=== PATIENT | male | born 1990 | race Caucasian/White ===

== ENCOUNTER 2017-04-18 10:46 | Emergency (ER) | payer OTHER ==
[~2017-04-18] VITALS: Ht 182.9 cm; Wt 121.0 kg
[2017-04-18] MEDS ORDERED: GASTROGRAFIN SOLUTION 30ML (Q9963) PO ONE ×2 (12:25→12:55)
[2017-04-18 13:02] LABS: ALBUMIN 3.8 GM/DL (3.2-5.2); ALKALINE PHOSPHATASE 93 U/L (45-117); ALT/SGPT 66 U/L (12-78); ANION GAP 6 MEQ/L (8-16); AST/SGOT 26 U/L (15-37); BILIRUBIN,TOTAL 0.3 MG/DL (0.2-1.0); BLOOD UREA NITROGEN 10 MG/DL (7-18); CARBON DIOXIDE LEVEL 26 MEQ/L (21-32); CHLORIDE LEVEL 106 MEQ/L (98-107); CREATININE FOR GFR 0.93 MG/DL (0.70-1.30); GLOMERULAR FILTRATION RATE > 60.0 (>60); GLUCOSE, FASTING 98 MG/DL (70-105); POTASSIUM SERUM 3.8 MEQ/L (3.5-5.1); SODIUM LEVEL 138 MEQ/L (136-145); TOTAL PROTEIN 7.6 GM/DL (6.4-8.2)
[2017-04-18 13:13] LABS: BASO # 0.1 K/mm3 (0.0-0.2); BASO % 1.2 % (0.0-1.0); EOS # 0.4 K/mm3 (0.0-0.50); EOS % 6.3 % (0.0-3.0); LARGE UNSTAINED CELL # 0.1 K/mm3 (0.0-0.4); LARGE UNSTAINED CELL % 1.7 % (0.0-4.0); LYMPH # 1.9 K/mm3 (1.5-6.5); LYMPH % 28.4 % (24.0-44.0); MEAN CORPUSCULAR HEMOGLOBIN 27.8 pg (27.0-33.0); MEAN CORPUSCULAR VOLUME 81.6 fl (80.0-96.0); MONO # 0.5 K/mm3 (0.0-0.8); MONO % 6.7 % (0.0-5.0); NEUTROPHILS # 3.8 K/mm3 (1.8-7.7); NEUTROPHILS % 55.6 % (36.0-66.0); PLATELET COUNT, AUTOMATED 252 k/mm3 (150-450); RED CELL DISTRIBUTION WIDTH 13.6 % (11.5-14.5); WHITE BLOOD COUNT 6.8 K/mm3 (4.0-10.0)
[2017-04-18] MEDS ORDERED: ACETAMINOPHEN TAB 650MG DOSE (2X325MG) PO ONE (13:30)
[2017-04-18] MEDS ORDERED: IBUPROFEN 800 MG TAB PO ONE (13:30)
[2017-04-18] MEDS ORDERED: ISOVUE-370 76% 100ML VIAL (Q9967) As Ordered ONE (13:45)
--- NOTE | 2017-04-18 14:15 | REP ---
Clinical: Abdominal pain with diarrhea and hematochezia. Technique: Axial contrast enhanced images from the lung bases to the pubic symphysis using oral and 100 ml Isovue 370 intravenous contrast material with coronal and sagittal re-formations. Findings: Lung bases are clear. Visualized heart and pericardium normal. Liver, spleen, pancreas, gallbladder, bilateral adrenal glands and kidneys are normal. The enteric system including stomach, small, and large bowel is without obstruction or acute inflammatory process. Normal terminal ileum identified in the right lower quadrant. Pelvis demonstrates normal bladder and age appropriate prostate/seminal vesicles. No free fluid. No significant adenopathy. No free air. Vasculature normal. Musculoskeletal structures are intact. Impression: Normal contrast enhanced CT of the abdomen and pelvis. No acute abdominopelvic pathology appreciated. Signed by Garrick Lal MD 04/18/2017 02:06 P
[2017-04-18 15:05] VITALS: BP 133/74
== END 2017-04-18 15:07 | disposition home or self-care (01) ==
LOC: M ED 10:46
DX: K92.1 Melena (principal); R10.9 Unspecified abdominal pain; R19.7 Diarrhea, unspecified

== ENCOUNTER 2018-04-04 16:23 | Emergency (ER) | payer OTHER ==
[2018-04-04 17:13] LABS: KETONE, URINE AUTO RFX TRACE mg/dL (NEGATIVE); LEUKOCYTE ESTERASE UR AUTO RFX NEGATIVE (NEGATIVE); NITRITE, URINE AUTO RFX NEGATIVE (NEGATIVE); RBC, URINE AUTO RFX 0 /HPF (0-3); SQUAM EPITHELIAL CELL UR AURFX 0 /HPF (0-6); WBC, URINE AUTO RFX 0 /HPF (0-3)
[2018-04-04 18:13] LABS: BEDSIDE GLUCOSE 370 MG/DL (70-105)
[2018-04-04 18:40] LABS: CHLAMYDIA DNA AMPLIFICATION NEGATIVE (NEGATIVE); GC DNA AMPLIFICATION NEGATIVE (NEGATIVE)
[2018-04-04] MEDS: NS 1,000 ML IV (18:43)
[2018-04-04] MEDS: HumuLIN R (REGULAR) INSULIN (NovoLIN R) **100U/ML** PER UNIT IV (18:46)
[2018-04-04 19:25] LABS: BEDSIDE GLUCOSE 307 MG/DL (70-105)
[2018-04-04 19:35] LABS: BASO % 0.5 % (0.0-1.0); EOS # 0.2 10^3/uL (0.0-0.50); EOS % 1.9 % (0.0-3.0); HEMATOCRIT 37.2 % (42.0-52.0); HEMOGLOBIN 12.9 g/dl (13.5-17.5); IMMATURE GRANULOCYTE % 0.3 % (0-3.0); LYMPH # 1.7 10^3/uL (1.5-6.5); LYMPH % 21.1 % (24.0-44.0); MEAN CORPUSCULAR HEMOGLOBIN 26.9 pg (27.0-33.0); MEAN CORPUSCULAR HGB CONC 34.7 g/dl (32.0-36.5); MEAN CORPUSCULAR VOLUME 77.7 fl (80.0-96.0); MONO # 0.5 10^3/uL (0.0-0.8); MONO % 6.7 % (0.0-5.0); NEUTROPHILS # 5.5 10^3/uL (1.8-7.7); NEUTROPHILS % 69.5 % (36.0-66.0); PLATELET COUNT, AUTOMATED 182 10^3/uL (150-450); RED BLOOD COUNT 4.79 10^6/uL (4.30-6.10); RED CELL DISTRIBUTION WIDTH 14.1 % (11.5-14.5); VENOUS BASE EXCESS -4.8 (-2.0-2.0); VENOUS HCO3 20.1 MEQ/L (23.0-27.0); VENOUS O2 SATURATION 83.1 % (60.0-80.0); VENOUS PARTIAL PRESSURE CO2 36.5 mmHg (38.0-50.0); VENOUS PARTIAL PRESSURE O2 47.3 mmHg (30.0-50.0); VENOUS PH 7.359 UNITS (7.330-7.430); VENOUS STANDARD HCO3 20.3 MEQ/L; VENOUS TOTAL CO2 21.2 MEQ/L (24.0-28.0); WHITE BLOOD COUNT 7.9 10^3/uL (4.0-10.0)
[2018-04-04 19:51] LABS: ESTIMATED AVERAGE GLUCOSE 295 MG/DL (60-110); HEMOGLOBIN A1c 11.9 %
[2018-04-04 19:57] LABS: ANION GAP 10 MEQ/L (8-16); BLOOD UREA NITROGEN 7 MG/DL (7-18); CARBON DIOXIDE LEVEL 27 MEQ/L (21-32); CHLORIDE LEVEL 103 MEQ/L (98-107); CREATININE FOR GFR 0.87 MG/DL (0.70-1.30); GLOMERULAR FILTRATION RATE > 60.0 (>60); GLUCOSE, FASTING 315 MG/DL (70-100); POTASSIUM SERUM 3.5 MEQ/L (3.5-5.1); SODIUM LEVEL 140 MEQ/L (136-145)
[2018-04-04 20:06] LABS: BEDSIDE GLUCOSE 302 MG/DL (70-105)
[2018-04-04] MEDS: FLUCONAZOLE 50MG TABLET PO (20:45)
[2018-04-04] MEDS: metFORMIN (GLUCOPHAGE) 500 MG TAB PO (20:45)
== END 2018-04-04 21:19 | disposition home or self-care (01) ==
LOC: M ED 16:23
DX: B37.42 Candidal balanitis (principal); N47.1 Phimosis; E11.9 Type 2 diabetes mellitus without complications; Z88.5 Allergy status to narcotic agent
CPT/HCPCS: 82803

== ENCOUNTER → 2018-04-06 | Outpatient (CLI) | payer OTHER | LOC: M SLEEP HO 10:45 | DX: R06.83 Snoring (principal) | CPT/HCPCS: G0399 ==

== ENCOUNTER → 2018-04-08 | Outpatient (CLI) | payer OTHER ==
[2018-04-08 08:20] LABS: APPEARANCE, URINE CLEAR (CLEAR); BACTERIA, URINE AUTO NEGATIVE (NEGATIVE); BILIRUBIN, URINE AUTO NEGATIVE (NEGATIVE); BLOOD, URINE BLOOD NEGATIVE (NEGATIVE); COLOR, URINE YELLOW (YELLOW); GLUCOSE, URINE (UA) AUTO 2+ mg/dL (NEGATIVE); KETONE, URINE AUTO NEGATIVE (NEGATIVE); LEUKOCYTE ESTERASE, URINE AUTO NEGATIVE (NEGATIVE); NITRITE, URINE AUTO NEGATIVE (NEGATIVE); PROTEIN, URINE AUTO NEGATIVE (NEGATIVE); RBC, URINE AUTO 1 /HPF (0-3); SPECIFIC GRAVITY URINE AUTO 1.028 (1.002-1.035); SQUAMOUS EPITHELIAL CELL UR AU 1 /HPF (0-6); UROBILINOGEN, URINE AUTO 0.2 mg/dL (0.0-2.0); WBC, URINE AUTO 2 /HPF (0-3)
[2018-04-08 08:58] LABS: ALBUMIN 3.8 GM/DL (3.2-5.2); ALBUMIN/GLOBULIN RATIO 0.93 (1.00-1.93); ALKALINE PHOSPHATASE 111 U/L (45-117); ALT/SGPT 117 U/L (12-78); ANION GAP 10 MEQ/L (8-16); AST/SGOT 73 U/L (7-37); BILIRUBIN,TOTAL 0.4 MG/DL (0.2-1.0); BLOOD UREA NITROGEN 12 MG/DL (7-18); CALCIUM LEVEL 8.8 MG/DL (8.5-10.1); CARBON DIOXIDE LEVEL 26 MEQ/L (21-32); CHLORIDE LEVEL 104 MEQ/L (98-107); CHOLESTEROL LEVEL 179 MG/DL (<200); CHOLESTEROL RISK RATIO 7.782 (<5); CREATININE FOR GFR 0.88 MG/DL (0.70-1.30); GLOMERULAR FILTRATION RATE > 60.0 (>60); GLUCOSE, FASTING 189 MG/DL (70-100); HDL CHOLESTEROL 23 MG/DL (>40); MALB URINE SIEMENS 33.9 MG/L; MAU/CREAT RATIO 12.3 MCG/MG (0.0-30.0); NON-HDL-C 156 MG/DL; SODIUM LEVEL 140 MEQ/L (136-145); TOTAL PROTEIN 7.9 GM/DL (6.4-8.2); TRIGLYCERIDES LEVEL 540 MG/DL (<150)
[2018-04-10 14:28] LABS: C-PEPTIDE 6.6 ng/mL (1.1-4.4)
[2018-04-10 14:28] LABS: INSULIN LEVEL 43.9 uIU/mL (2.6-24.9)
[2018-04-13 00:07] LABS: GAD-65 AUTOANTIBODY <5.0 U/mL (0.0-5.0)
[2018-04-13 00:07] LABS: ISLET CELL ANTIBODIES Negative (Neg:<1:1)
== END ==
LOC: M LAB 07:26
DX: E11.9 Type 2 diabetes mellitus without complications (principal)
CPT/HCPCS: 83525

== ENCOUNTER → 2018-04-12 | Outpatient (CLI) | payer OTHER ==
[2018-04-12 11:32] LABS: LDH LACTATE DEHYDROGENASE 205 U/L (87-241)
[2018-04-12 11:53] LABS: HEPATITIS B SURFACE ANTIGEN NEGATIVE (NEGATIVE)
[2018-04-12 12:21] LABS: HEPATITIS C VIRUS ABY INDEX 0.2 INDEX (<0.8)
[2018-04-12 12:22] LABS: HEPATITIS B CORE ANTIBODY IGM NEGATIVE (NEGATIVE)
[2018-04-12 12:23] LABS: HEPATITIS A ANTIBODY IGM NEGATIVE (NEGATIVE)
[2018-04-12 18:34] LABS: AMORPHOUS SEDIMENT MODERATE (NEGATIVE); APPEARANCE, URINE TURBID (CLEAR); BACTERIA, URINE AUTO NEGATIVE (NEGATIVE); BILIRUBIN, URINE AUTO NEGATIVE (NEGATIVE); BLOOD, URINE BLOOD NEGATIVE (NEGATIVE); COLOR, URINE YELLOW (YELLOW); GLUCOSE, URINE (UA) AUTO NEGATIVE (NEGATIVE); KETONE, URINE AUTO NEGATIVE (NEGATIVE); LEUKOCYTE ESTERASE, URINE AUTO TRACE (NEGATIVE); MUCUS, URINE SMALL (NEGATIVE); NITRITE, URINE AUTO NEGATIVE (NEGATIVE); PROTEIN, URINE AUTO NEGATIVE (NEGATIVE); RBC, URINE AUTO 9 /HPF (0-3); SQUAMOUS EPITHELIAL CELL UR AU 0 /HPF (0-6); UROBILINOGEN, URINE AUTO 0.2 mg/dL (0.0-2.0); WBC, URINE AUTO 0 /HPF (0-3)
== END ==
LOC: M LAB 10:40
DX: R74.8 Abnormal levels of other serum enzymes (principal); N48.1 Balanitis
CPT/HCPCS: 83615

== ENCOUNTER → 2018-04-26 | Outpatient (CLI) | payer OTHER | LOC: M RAD 06:50 | DX: R74.8 Abnormal levels of other serum enzymes (principal); K76.0 Fatty (change of) liver, not elsewhere classified | CPT/HCPCS: 76705 ==

== ENCOUNTER 2020-03-25 15:25 | Emergency (ER) | payer OTHER ==
[~2020-03-25] VITALS: Ht 182.9 cm; Wt 128.7 kg
[~2020-03-25 15:25] MED LIST: DIFL150T PO; LOTRCRE TOP; METF500T13 PO
--- NOTE | 2020-03-25 16:14 | ECGEPIP ---
[facility] - ED Test Date: 2020-03-25 Pat Name: DI WEEMS Department: Room: - Gender: Male [employer]: : 1990 Requested By: ANNABEL Quarles Order Number: [id number] Reading MD: Elva Stack Measurements Intervals [place] Rate: 110 P: 30 NC: 144 QRS: 46 QRSD: 91 T: 39 QT: 313 QTc: 425 Interpretive Statements SINUS TACHYCARDIA ABNORMAL RHYTHM ECG INCREASED RATE 10/09/14 Electronically Signed on 03-25-2020 16:14:00 EDT by Elva Stack
[2020-03-25] MEDS ORDERED: GI COCKTAIL 50ML BTL(HYOSCYAMINE/MAALOX/LIDOCAINE VISCOUS)(1:3:1) PO ONE (16:15)
[2020-03-25 16:34] LABS: BASO # 0.1 10^3/uL (0.0-0.2); BASO % 0.9 % (0.0-1.0); EOS # 0.1 10^3/uL (0.0-0.5); EOS % 1.9 % (0.0-3.0); HEMATOCRIT 42.7 % (42.0-52.0); HEMOGLOBIN 14.2 g/dl (13.5-17.5); LYMPH # 1.8 10^3/uL (1.5-5.0); MEAN CORPUSCULAR HEMOGLOBIN 26.8 pg (27.0-33.0); MEAN CORPUSCULAR HGB CONC 33.3 g/dl (32.0-36.5); MEAN CORPUSCULAR VOLUME 80.7 fl (80.0-96.0); MONO # 0.4 10^3/uL (0.0-0.8); NEUTROPHILS % 54.8 % (36.0-66.0); PLATELET COUNT, AUTOMATED 226 10^3/uL (150-450); RED BLOOD COUNT 5.29 10^6/uL (4.30-6.10); WHITE BLOOD COUNT 5.4 10^3/uL (4.0-10.0)
[2020-03-25 16:44] LABS: INR 1.04; PROTHROMBIN TIME 13.3 SECONDS (11.8-14.0)
--- NOTE | 2020-03-25 17:04 | REP ---
Two-view chest: 03/25/2020. Indication: Chest pain. Comparison: 05/08/2011. Findings: The lungs are clear. There is no pleural effusion or pneumothorax. The cardiac silhouette is not enlarged. Impression: Clear lungs. Electronically Signed by Cain Borges DO 03/25/2020 04:56 P
[2020-03-25 17:12] LABS: ALBUMIN 3.8 GM/DL (3.2-5.2); ALT/SGPT 92 U/L (12-78); BILIRUBIN,DIRECT < 0.1 MG/DL (0.0-0.2); BILIRUBIN,TOTAL 0.3 MG/DL (0.2-1.0); CK-MB VALUE MASS < 1.0 NG/ML (<3.6); CPK CREATINE PHOSPHOKINASE 95 U/L (39-308); FREE T4 1.21 NG/DL (0.76-1.46); LIPASE 96 U/L (73-393); MB/CK RELATIVE INDEX 1.05 (< OR =4); NT-PRO BNP 13 PG/ML (<125); TOTAL PROTEIN 7.8 GM/DL (6.4-8.2); TROPONIN I < 0.02 NG/ML (< 0.10)
[2020-03-25 17:20] LABS: HEMOGLOBIN A1c 9.3 %
[2020-03-25 18:02] LABS: D-DIMER QUANT < 270 ng/ml (<500)
[2020-03-25 18:50] LABS: APPEARANCE, URINE CLEAR (CLEAR); BACTERIA, URINE AUTO NEGATIVE (NEGATIVE); BILIRUBIN, URINE AUTO NEGATIVE (NEGATIVE); BLOOD, URINE BLOOD NEGATIVE (NEGATIVE); COLOR, URINE YELLOW (YELLOW); GLUCOSE, URINE (UA) AUTO 3+ mg/dL (NEGATIVE); KETONE, URINE AUTO NEGATIVE (NEGATIVE); LEUKOCYTE ESTERASE, URINE AUTO NEGATIVE (NEGATIVE); MUCUS, URINE SMALL (NEGATIVE); NITRITE, URINE AUTO NEGATIVE (NEGATIVE); PROTEIN, URINE AUTO 1+ mg/dL (NEGATIVE); RBC, URINE AUTO 0 /HPF (0-3); SPECIFIC GRAVITY URINE AUTO 1.033 (1.002-1.035); SQUAMOUS EPITHELIAL CELL UR AU 1 /HPF (0-6); UROBILINOGEN, URINE AUTO 0.2 mg/dL (0.0-2.0); WBC, URINE AUTO 5 /HPF (0-3)
[2020-03-25] MEDS ORDERED: OMEP-218 PO (18:56)
[2020-03-25 19:06] VITALS: BP 132/87
== END 2020-03-25 19:07 | disposition home or self-care (01) ==
LOC: M ED 15:25
DX: E11.65 Type 2 diabetes mellitus with hyperglycemia (principal); K21.9 Gastro-esophageal reflux disease without esophagitis; R00.0 Tachycardia, unspecified; Z88.8 Allergy status to other drugs, medicaments and biological substances

== ENCOUNTER → 2021-04-09 | Outpatient (CLI) | payer OTHER ==
[~2021-04-09] MED LIST changes: +OMEP-218 PO
[2021-04-09 13:38] LABS: HEMOGLOBIN A1c 9.9 %
[2021-04-09 13:49] LABS: ALBUMIN 3.7 GM/DL (3.2-5.2); ALT/SGPT 67 U/L (12-78); BILIRUBIN,TOTAL 0.3 MG/DL (0.2-1.0); BLOOD UREA NITROGEN 7 MG/DL (7-18); CALCIUM LEVEL 8.7 MG/DL (8.5-10.1); CARBON DIOXIDE LEVEL 26 MEQ/L (21-32); CHLORIDE LEVEL 103 MEQ/L (98-107); CHOLESTEROL LEVEL 224 MG/DL (<200); CREATININE, URINE 79.1 MG/DL; GLOMERULAR FILTRATION RATE > 60.0 (>60); GLUCOSE, FASTING 317 MG/DL (70-100); HDL CHOLESTEROL 25 MG/DL (>40); MALB URINE SIEMENS 7.4 MG/L; MAU/CREAT RATIO 9.3 MCG/MG (0.0-30.0); NON-HDL-C 199 MG/DL; POTASSIUM SERUM 3.8 MEQ/L (3.5-5.1); SODIUM LEVEL 135 MEQ/L (136-145); TOTAL PROTEIN 7.3 GM/DL (6.4-8.2); TRIGLYCERIDES LEVEL 711 MG/DL (<150)
== END ==
LOC: M LAB 12:19
PROVIDERS: ATTEND Nurse Practitioner Family
DX: E78.49 Other hyperlipidemia (principal)

== ENCOUNTER → 2021-08-17 | Outpatient (CLI) | payer OTHER ==
[2021-08-17 11:49] LABS: ALBUMIN 3.7 GM/DL (3.2-5.2); ALT/SGPT 61 U/L (12-78); BILIRUBIN,TOTAL 0.4 MG/DL (0.2-1.0); BLOOD UREA NITROGEN 8 MG/DL (7-18); CALCIUM LEVEL 9.4 MG/DL (8.5-10.1); CARBON DIOXIDE LEVEL 27 MEQ/L (21-32); CHLORIDE LEVEL 102 MEQ/L (98-107); CHOLESTEROL LEVEL 116 MG/DL (<200); CHOLESTEROL RISK RATIO 3.741 (<5); CREATININE FOR GFR 1.01 MG/DL (0.70-1.30); FREE T4 0.98 NG/DL (0.76-1.46); GLOMERULAR FILTRATION RATE > 60.0 (>60); GLUCOSE, FASTING 245 MG/DL (70-100); HDL CHOLESTEROL 31 MG/DL (>40); LDL CHOLESTEROL 27 MG/DL (<100); NON-HDL-C 85 MG/DL; POTASSIUM SERUM 4.2 MEQ/L (3.5-5.1); SODIUM LEVEL 137 MEQ/L (136-145); TOTAL PROTEIN 7.5 GM/DL (6.4-8.2); TRIGLYCERIDES LEVEL 292 MG/DL (<150)
[2021-08-17 11:53] LABS: HEMOGLOBIN A1c 9.1 %
== END ==
LOC: M LAB 10:41
PROVIDERS: ATTEND Nurse Practitioner Family
DX: E78.5 Hyperlipidemia, unspecified (principal); I10 Essential (primary) hypertension; E11.9 Type 2 diabetes mellitus without complications

== ENCOUNTER 2021-10-01 13:08 | Emergency (ER) | payer OTHER ==
[~2021-10-01] VITALS: Ht 177.8 cm; Wt 100.0 kg
[2021-10-01] MEDS ORDERED: MORPHINE 4 MG/ML 1ML VIAL/SYRINGE (J2270) IV ONE ×2 (14:30→16:00)
[2021-10-01] MEDS ORDERED: ONDANSETRON 4MG/2ML VIAL IV ONE (14:30)
--- NOTE | 2021-10-01 15:31 | REP ---
INDICATION: fall, pt tender. COMPARISON: None TECHNIQUE: Two views FINDINGS: The hip joint space is symmetric and well maintained. There is no fracture, dislocation, or subluxation. IMPRESSION: No acute abnormalities identified. <Electronically signed by Shayne Gaston > 10/01/21 [id number]
--- NOTE | 2021-10-01 15:34 | REP ---
INDICATION: poss patellar sublux, pain, instability after fall COMPARISON: 01/07/2014 TECHNIQUE: Four views absent the sunrise view. The patient was unable to assume the position necessary for a sunrise view. FINDINGS: There is a faintly visible but abnormal appearing ossific density in the posterior knee joint region. This represents a change from the prior exam. Additionally, there is an abnormal linear density in the anterior knee joint region and again seen only on the lateral view. The patella cannot be completely assessed without a sunrise view. IMPRESSION: 1. There are new abnormal os effect densities as described above. Fractures of unknown origin cannot be ruled out. The represent a change from the prior exam. 2. Insufficient evaluation of the patella in a patient with trauma. CT is recommended. <Electronically signed by Shayne Gaston > 10/01/21 [id number]
[2021-10-01] MEDS ORDERED: KETOROLAC 30 MG/ML 1ML VIAL IV ONE (16:00)
--- NOTE | 2021-10-01 16:27 | REP ---
INDICATION: slip and fall, knee unstable, swelling, tender. COMPARISON: Prior plain film examinations 01/07/2014 and earlier today reviewed TECHNIQUE: 2 x [address] scanning through the left knee was obtained and reconstructed in sagittal and coronal planes. FINDINGS: There is a comminuted fracture of the lateral cortical surface of the lateral femoral condyle with a concomitant comminuted fracture of the medial cortical surface of the medial patellar facet. Multiple tiny ossific densities are seen in the median aspect of the knee joint. 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 This was faintly visible on the prior plain film examination of 01/07/2014 and has increased in size when that plain film exam is compared to the most recent plain film exam. There is a large knee joint effusion probably hemarthrosis. IMPRESSION: 1. Lateral femoral condylar and medial patellar fractures, as described above, and most consistent with recent lateral patellar dislocation with reduction. 2. Additional ossific densities within the knee joint as described above highly suspicious for avulsion fractures due to aggressive ACL disruption. This needs further evaluation with MRI. 3. There is a large knee joint effusion likely hemarthrosis. 4. Other findings as described above. <Electronically signed by Shayne Gaston > 10/01/21 [id number]
[2021-10-01 17:48] LABS: RSV AMPLIFICATION NEGATIVE (NEGATIVE)
[2021-10-01] MEDS ORDERED: NS 1,000 ML IV ONE (18:30)
--- NOTE | 2021-10-01 18:40 | REPVR ---
PROCEDURE INFORMATION: Exam: MR Left Lower Extremity Joint Without Contrast, Knee Exam date and time: 10/01/2021 6:01 PM Age: 31 years old Clinical indication: Pain; Prior surgery; Surgery date: 6+ months; Surgery type: Left knee arthroscopic; Additional info: L knee patellar dislocation and fractures TECHNIQUE: Imaging protocol: MR of the Left lower extremity joint without contrast. Exam focused on the knee. COMPARISON: CT-Knee WITHOUT CONTRAST 10/01/2021 3:59 PM FINDINGS: The anterior and posterior cruciate ligaments are intact. There is a full-thickness tear of the medial patellofemoral retinaculum, extending to the femoral attachment of the medial collateral ligament, which is partially torn. The lateral collateral complex is normal in appearance. The medial and lateral menisci are normal in morphology and signal intensity. No meniscal tear is identified. The extensor mechanism is intact. There are comminuted, displaced fractures along the medial patellar facet and anterolateral aspect of the lateral femoral condyle. There is no dislocation. There is mild lateral patellar subluxation. Alignment is otherwise anatomic. There is fragmentation of the articular cartilage at the fracture sites. The remainder of the articular cartilage is intact. There is a large lipohemarthrosis. There is a 1.4 x 0.9 cm loose body in the posterior joint space. There is moderate periarticular soft tissue swelling and blood products. IMPRESSION: 1. Sequelae of recent transient lateral patellar dislocation with associated fractures, as described above. 2. Additional findings, as above. Electronically signed by: lEian Garay On 10/01/2021 18:40:08 PM
[2021-10-01 18:44] LABS: BASO % 0.5 % (0.0-1.0); EOS # 0.1 10^3/uL (0.0-0.5); EOS % 1.6 % (0.0-3.0); HEMATOCRIT 22.5 % (42.0-52.0); HEMOGLOBIN 7.1 g/dl (13.5-17.5); LYMPH % 21.5 % (24.0-44.0); MEAN CORPUSCULAR HEMOGLOBIN 26.9 pg (27.0-33.0); MEAN CORPUSCULAR HGB CONC 31.6 g/dl (32.0-36.5); MEAN CORPUSCULAR VOLUME 85.2 fl (80.0-96.0); MONO # 0.3 10^3/uL (0.0-0.8); NEUTROPHILS # 3.1 10^3/uL (1.5-8.5); NEUTROPHILS % 69.2 % (36.0-66.0); PLATELET COUNT, AUTOMATED 127 10^3/uL (150-450); RED BLOOD COUNT 2.64 10^6/uL (4.30-6.10); WHITE BLOOD COUNT 4.4 10^3/uL (4.0-10.0)
[2021-10-01 19:10] LABS: BLOOD UREA NITROGEN 8 MG/DL (7-18); CALCIUM LEVEL 8.1 MG/DL (8.5-10.1); CARBON DIOXIDE LEVEL 26 MEQ/L (21-32); CHLORIDE LEVEL 107 MEQ/L (98-107); GLOMERULAR FILTRATION RATE > 60.0 (>60); GLUCOSE, FASTING 95 MG/DL (70-100); POTASSIUM SERUM 3.6 MEQ/L (3.5-5.1); SODIUM LEVEL 140 MEQ/L (136-145)
[2021-10-01] MEDS ORDERED: HYDR-3713 PO (19:12)
[2021-10-01 19:14] VITALS: BP 145/78
[2021-10-01] MEDS ORDERED: physical therapy (19:25)
--- NOTE | 2021-10-02 09:31 | ER ---
ER CONSULTATION DATE: 10/01/2021 TIME: 5:00 p.m. CONSULTING SERVICE: Orthopedic Surgery. CONSULING PHYSICIAN: Tobin Glass MD HISTORY OF PRESENT ILLNESS: This is a 31-year-old male who sustained a twisting injury to his left knee while falling on ice today after a shift at [employer]. The patient sustained a left knee MCL strain as well as disruption of his MPFL. The patient presented with a painful left knee and hemarthrosis. On presentation he had CT and MRI performed on his left knee by the ER provider. Orthopedic Surgery was consulted for further evaluation and treatment. PAST MEDICAL HISTORY: 1. Diabetes. 2. Hypertension. 3. Hyperlipidemia. PAST SURGICAL HISTORY: 1. Left knee arthroscopy. 2. Lateral retinacular release. FAMILY HISTORY: SOCIAL HISTORY: He is a nondrinker, nonsmoker, no IV drug use. He works at [employer]. ALLERGIES: TRAMADOL. MEDICATIONS: 1. Metformin. 2. Aspirin. 3. Additional medications the patient could not recall. PHYSICAL EXAMINATION: Alert and oriented to person, time, and place. The patient had a very guarded knee exam. However, he did have significant hemarthrosis and edema is appreciated by the intracapsular swelling and edema and palpation of the suprapatellar region. He had tenderness to palpation about the femoral insertion of the MCL and the patellar insertion of the MPFL. The patient had a negative anterior drawer, negative posterior drawer examination, negative [place] examination. He was significantly guarding to a pivot shift exam and was guarding to varus and valgus stress at 0-30 degrees. The patient had significant translation laterally of two quadrants and guarded significantly with translation of the patella medially. The patient is otherwise neurovascularly intact to the left lower extremity. He had no breaks in the skin. He had 5/5 motor strength to the EHL, FHL, tibialis anterior, gastrocnemius and peroneal musculature. Sensation is intact to light touch to the deep and superficial peroneal, sural saphenous and tibial nerve root distributions. He had palpable pulses to the dorsalis pedis and posterior tibial arterial pulse. Brisk capillary refill in the digits. IMAGING DATA: Radiographs demonstrate what appears to be an avulsion fracture to the medial aspect of his patella, some previous calcification of the tibial spines likely secondary to previous arthroscopy and a loose body in the posterior aspect of his knee which appeared sclerotic and likely previously established. The patient's left knee CT scan was significant for the aforementioned findings and what appear to be some previous heterotopic ossification of the lateral aspect of the patient's distal femur. The patient's MRI demonstrated significant hemarthrosis on the patient's knee, disrupted MPFL and signal along the femoral insertion of the MCL indicative of grade 1 or 2 strain. No meniscal tears are appreciated on the lateral medial meniscus. Anterior cruciate, or posterior cruciate ligaments were intact. There was some bony bruising on the lateral femoral condyle. His patellar tendon and quadriceps tendons were intact. IMPRESSION: A 31-year-old male with a likely grade 1 or 2 MCL strain and MPFL disruption. PLAN: At this point in time, the patient had significant guarding to the left knee exam secondary to hemarthrosis which was aspirated. The patient will initiate early physical therapy for range of motion and quadriceps and hamstring strengthening in order to initiate accelerated healing to the left knee. Early physical therapy will allow the patient to maintain his range of motion without significant stiffness given his hemarthrosis. After two and a half to three weeks of physical therapy, the patient will follow up in my clinic on the October, for surgical consideration of MPFL reconstruction. The patient was given a knee immobilizer which will be locked in full extension for the duration. While he is not in physical therapy he will be allowed to weight bear as tolerated with crutches and his knee immobilizer to get around the community. I will see the patient again on October 22, 2021 with myself for further treatment and considerations to include possible surgery.
== END 2021-10-01 20:08 | disposition home or self-care (01) ==
LOC: EDBD 13:08 → M ED 13:08
DX: S72.425A Nondisplaced fracture of lateral condyle of left femur, initial encounter for closed fracture (principal); S83.005A Unspecified dislocation of left patella, initial encounter; S83.002A Unspecified subluxation of left patella, initial encounter; M25.062 Hemarthrosis, left knee; K21.9 Gastro-esophageal reflux disease without esophagitis; E78.5 Hyperlipidemia, unspecified; E11.9 Type 2 diabetes mellitus without complications; Z88.5 Allergy status to narcotic agent; Z79.84 Long term (current) use of oral hypoglycemic drugs; W00.0XXA Fall on same level due to ice and snow, initial encounter; Y92.410 Unspecified street and highway as the place of occurrence of the external cause; Y93.9 Activity, unspecified; Y99.9 Unspecified external cause status
CPT/HCPCS: 73502; 73564; 73700; 73721; 80048; 85025; 87631; 96374; 96375; 99284; J1885; J2270; J2405

== ENCOUNTER → 2021-11-21 | Outpatient (CLI) | payer OTHER ==
[~2021-11-21] MED LIST changes: +HYDR-3713 PO; +OMEP-173 PO; -OMEP-218 PO; +physical therapy
[2021-11-21 17:32] LABS: BASO % 0.3 % (0.0-1.0); EOS # 0.1 10^3/uL (0.0-0.5); EOS % 1.2 % (0.0-3.0); HEMATOCRIT 45.3 % (42.0-52.0); HEMOGLOBIN 14.2 g/dl (13.5-17.5); LYMPH # 1.7 10^3/uL (1.5-5.0); LYMPH % 30.1 % (24.0-44.0); MEAN CORPUSCULAR HGB CONC 31.3 g/dl (32.0-36.5); MEAN CORPUSCULAR VOLUME 82.8 fl (80.0-96.0); MONO # 0.4 10^3/uL (0.0-0.8); MONO % 7.3 % (2.0-8.0); NEUTROPHILS # 3.5 10^3/uL (1.5-8.5); NEUTROPHILS % 60.9 % (36.0-66.0); PLATELET COUNT, AUTOMATED 261 10^3/uL (150-450); RED BLOOD COUNT 5.47 10^6/uL (4.30-6.10); WHITE BLOOD COUNT 5.7 10^3/uL (4.0-10.0)
[2021-11-21 17:36] LABS: INR 0.97; PROTHROMBIN TIME 13.3 SECONDS (12.7-14.5)
[2021-11-21 17:37] LABS: PARTIAL THROMBOPLASTIN TIME 31.5 SECONDS (25.9-37.0)
[2021-11-21 17:56] LABS: ALBUMIN 4.3 GM/DL (3.2-5.2); ALT/SGPT 53 U/L (12-78); BILIRUBIN,TOTAL 0.7 MG/DL (0.2-1.0); BLOOD UREA NITROGEN 7 MG/DL (7-18); CALCIUM LEVEL 9.4 MG/DL (8.5-10.1); CARBON DIOXIDE LEVEL 28 MEQ/L (21-32); CHLORIDE LEVEL 104 MEQ/L (98-107); CREATININE FOR GFR 0.93 MG/DL (0.70-1.30); FERRITIN 94 NG/ML (26-388); GLOMERULAR FILTRATION RATE > 60.0 (>60); GLUCOSE, FASTING 83 MG/DL (70-100); NT-PRO BNP 12 PG/ML (<125); SODIUM LEVEL 141 MEQ/L (136-145); THYROID PEROXIDASE ANTIBODY < 28.0 U/ML (<60.0); TOTAL PROTEIN 8.2 GM/DL (6.4-8.2)
[2021-11-21 18:26] LABS: HEMOGLOBIN A1c 5.8 %
== END ==
LOC: M PLALAB 15:54
PROVIDERS: ATTEND Family Medicine
DX: Z01.818 Encounter for other preprocedural examination (principal); E11.9 Type 2 diabetes mellitus without complications; I10 Essential (primary) hypertension

== ENCOUNTER → 2022-05-27 | Outpatient (CLI) | payer OTHER ==
[2022-05-27 15:30] LABS: BASO # 0.1 10^3/uL (0.0-0.2); BASO % 0.7 % (0.0-1.0); EOS # 0.1 10^3/uL (0.0-0.5); EOS % 2.1 % (0.0-3.0); HEMATOCRIT 46.1 % (42.0-52.0); HEMOGLOBIN 14.5 g/dl (13.5-17.5); LYMPH # 1.8 10^3/uL (1.5-5.0); LYMPH % 26.9 % (24.0-44.0); MEAN CORPUSCULAR HEMOGLOBIN 25.8 pg (27.0-33.0); MEAN CORPUSCULAR HGB CONC 31.5 g/dl (32.0-36.5); MEAN CORPUSCULAR VOLUME 81.9 fl (80.0-96.0); MONO # 0.5 10^3/uL (0.0-0.8); MONO % 7.5 % (2.0-8.0); NEUTROPHILS # 4.2 10^3/uL (1.5-8.5); NEUTROPHILS % 62.5 % (36.0-66.0); PLATELET COUNT, AUTOMATED 261 10^3/uL (150-450); RED BLOOD COUNT 5.63 10^6/uL (4.30-6.10); WHITE BLOOD COUNT 6.7 10^3/uL (4.0-10.0)
[2022-05-27 16:09] LABS: ALBUMIN 3.9 GM/DL (3.2-5.2); ALT/SGPT 47 U/L (12-78); BILIRUBIN,TOTAL 0.3 MG/DL (0.2-1.0); BLOOD UREA NITROGEN 13 MG/DL (7-18); CALCIUM LEVEL 9.7 MG/DL (8.5-10.1); CARBON DIOXIDE LEVEL 26 MEQ/L (21-32); CHLORIDE LEVEL 105 MEQ/L (98-107); CHOLESTEROL LEVEL 140 MG/DL (<200); FREE T4 0.84 NG/DL (0.76-1.46); GLOMERULAR FILTRATION RATE > 60.0 (>60); GLUCOSE, FASTING 144 MG/DL (70-100); HDL CHOLESTEROL 40 MG/DL (>40); LDL CHOLESTEROL 41 MG/DL (<100); NON-HDL-C 100 MG/DL; POTASSIUM SERUM 3.9 MEQ/L (3.5-5.1); SODIUM LEVEL 137 MEQ/L (136-145); TOTAL PROTEIN 7.5 GM/DL (6.4-8.2); TRIGLYCERIDES LEVEL 296 MG/DL (<150)
[2022-05-27 16:10] LABS: CREATININE, URINE 80.7 MG/DL; MALB URINE SIEMENS 9.5 MG/L; MAU/CREAT RATIO 11.7 MCG/MG (0.0-30.0)
[2022-05-27 16:12] LABS: HEMOGLOBIN A1c 6.2 %
== END ==
LOC: M PLALAB 13:50
PROVIDERS: ATTEND Nurse Practitioner Family
DX: E78.5 Hyperlipidemia, unspecified (principal); I10 Essential (primary) hypertension; E11.9 Type 2 diabetes mellitus without complications

== ENCOUNTER → 2024-11-08 | Outpatient (CLI) | payer OTHER ==
[~2024-11-08] MED LIST changes: +ASPI81CH33 PO; +ATOR80TA59 PO; +BASA100I SC; +EZET10TA21 PO; +LOSA25TA13 PO
[2024-11-08 17:48] LABS: HEMATOCRIT 42.2 % (42.0-52.0); MEAN CORPUSCULAR HEMOGLOBIN 27.2 pg (27.0-33.0); MEAN CORPUSCULAR HGB CONC 33.2 g/dl (32.0-36.5); MEAN CORPUSCULAR VOLUME 82.1 fl (80.0-96.0); PLATELET COUNT, AUTOMATED 237 10^3/uL (150-450); RED BLOOD COUNT 5.14 10^6/uL (4.30-6.10); WHITE BLOOD COUNT 5.5 10^3/uL (4.0-10.0)
[2024-11-08 18:20] LABS: CREATININE, URINE 179.4 MG/DL; MAU/CREAT RATIO 2.7 MCG/MG (0.0-30.0)
[2024-11-08 18:21] LABS: ALBUMIN 3.9 G/DL (3.2-5.2); ALKALINE PHOSPHATASE 86 U/L (40-129); ALT/SGPT 43 U/L (7.0-40); AST/SGOT 23 U/L (<34); BILIRUBIN,TOTAL 0.3 MG/DL (0.3-1.2); BLOOD UREA NITROGEN 10 MG/DL (9-23); CALCIUM LEVEL 9.1 MG/DL (8.5-10.1); CARBON DIOXIDE LEVEL 26 MMOL/L (20-31); CHLORIDE LEVEL 103 MMOL/L (98-107); CHOLESTEROL LEVEL 237 MG/DL (<200); CHOLESTEROL RISK RATIO 6.35 (<5); GLOMERULAR FILTRATION RATE > 60.0 (>60); GLUCOSE, FASTING 225 MG/DL (60-100); HDL CHOLESTEROL 37.3 MG/DL (>40); NON-HDL-C 199.7 MG/DL; SODIUM LEVEL 139 MMOL/L (136-145); TOTAL PROTEIN 7.5 G/DL (5.7-8.2); TRIGLYCERIDES LEVEL 455 MG/DL (<150)
[2024-11-08 18:22] LABS: VITAMIN B12 LEVEL 477 PG/ML (211-911)
[2024-11-08 18:23] LABS: THYROID STIMULATING HORMONE 1.949 uIU/ML (0.55-4.78)
[2024-11-08 18:24] LABS: FREE T4 1.06 NG/DL (0.89-1.76)
[2024-11-08 18:27] LABS: FOLATE 11.8 NG/ML (>5.4)
[2024-11-08 19:00] LABS: HEMOGLOBIN A1c 9.3 % (4.0-6.0)
== END ==
LOC: M PLALAB 15:10
PROVIDERS: ATTEND Nurse Practitioner Family
DX: K76.0 Fatty (change of) liver, not elsewhere classified (principal); E11.9 Type 2 diabetes mellitus without complications; E78.5 Hyperlipidemia, unspecified; R53.83 Other fatigue

== ENCOUNTER → 2025-02-06 | Outpatient (REF) | payer OTHER ==
[2025-02-06 18:36] LABS: HEMOGLOBIN A1c 6.5 % (4.0-6.0)
== END ==
LOC: M LABDRAWP 17:16
PROVIDERS: ATTEND Nurse Practitioner Family
DX: E11.9 Type 2 diabetes mellitus without complications (principal)

== ENCOUNTER → 2025-05-01 | Outpatient (CLI) | payer OTHER ==
[2025-05-01 13:54] LABS: MALB URINE SIEMENS 6.0 MG/L
[2025-05-01 13:58] LABS: CALCIUM LEVEL 9.2 MG/DL (8.5-10.1); CARBON DIOXIDE LEVEL 27 MMOL/L (20-31); CHLORIDE LEVEL 104 MMOL/L (98-107); CREATININE FOR GFR 0.91 MG/DL (0.70-1.30); GLOMERULAR FILTRATION RATE > 90.0 (>60); POTASSIUM SERUM 4.3 MMOL/L (3.5-5.1); SODIUM LEVEL 143 MMOL/L (136-145); TOTAL 25(OH) VITAMIN D 28.3 NG/ML (20.0-100.0)
[2025-05-01 14:10] LABS: CREATININE, URINE 340.0 MG/DL; MAU/CREAT RATIO 1.7 MCG/MG (0.0-30.0)
[2025-05-01 14:12] LABS: ESTIMATED AVERAGE GLUCOSE 123.0 MG/DL (60-110)
== END ==
LOC: M PLALAB 09:51
PROVIDERS: ATTEND Nurse Practitioner Family
DX: K76.0 Fatty (change of) liver, not elsewhere classified (principal); E11.9 Type 2 diabetes mellitus without complications

== ENCOUNTER → 2025-08-22 | Outpatient (CLI) | payer OTHER ==
[~2025-08-22] MED LIST changes: -EZET10TA21 PO; +EZET10TA57 PO
== END ==
LOC: M SLEEP HO 12:38
PROVIDERS: ATTEND Physician Assistant
DX: R06.83 Snoring (principal)